=== PATIENT | male | born 1995 | race Caucasian/White ===

== ENCOUNTER 2021-02-09 14:13 | Inpatient (IN) | payer OTHER ==
[~2021-02-09] VITALS: Ht 180.3 cm; Wt 76.5 kg
[~2021-02-09 14:13] MED LIST: CELEXA20 MG PO; FISH OIL 1,0001 EAC4 PO; K-DUR TAB 20 M20 MEQ PO; LOTENSIN40 MG PO; PROTONIX40 MG PO
[2021-02-09] MEDS ORDERED: BENAZEPRIL HCL40 MG PO (21:09)
[2021-02-09] MEDS ORDERED: BACLOFEN10 MG PO (21:10)
[2021-02-09 22:34] LABS: HEMOGLOBIN 12.7 gm/dl (14.0-17.5); RED BLOOD COUNT 4.09 M/UL (4.20-5.50); WHITE BLOOD COUNT 12.5 K/UL (4.5-11.0)
[2021-02-09 22:55] LABS: BUN/CREATININE RATIO 10 (0-10)
[2021-02-10 08:47] LABS: HEMOGLOBIN 12.1 gm/dl (14.0-17.5); RED BLOOD COUNT 3.84 M/UL (4.20-5.50)
[2021-02-10 08:51] LABS: WHITE BLOOD COUNT 9.1 K/UL (4.5-11.0)
[2021-02-10 09:13] LABS: BUN/CREATININE RATIO 9 (0-10)
[2021-02-11 05:54] LABS: RED BLOOD COUNT 3.85 M/UL (4.20-5.50)
[2021-02-11 05:56] LABS: WHITE BLOOD COUNT 5.6 K/UL (4.5-11.0)
[2021-02-11 06:19] LABS: BUN/CREATININE RATIO 12 (0-10)
== END 2021-02-11 15:49 | disposition home or self-care (01) | DRG 440 ==
LOC: MED SURG 4 20:36
PROVIDERS: Family Medicine; ADMIT Internal Medicine
DX: K85.20 Alcohol induced acute pancreatitis without necrosis or infection (principal); K86.0 Alcohol-induced chronic pancreatitis; I10 Essential (primary) hypertension; F17.210 Nicotine dependence, cigarettes, uncomplicated; F10.10 Alcohol abuse, uncomplicated; Z20.822 Contact with and (suspected) exposure to COVID-19; E78.5 Hyperlipidemia, unspecified; Z90.49 Acquired absence of other specified parts of digestive tract; Z88.6 Allergy status to analgesic agent; Z88.5 Allergy status to narcotic agent; Z88.8 Allergy status to other drugs, medicaments and biological substances
CPT/HCPCS: 36415; 80053; 82150; 83690; 83735; 85025; C9113; J1170; J1650; J2405; J2550; J3411; J7070; J7120